=== PATIENT | female | born 1935 | race Caucasian/White ===

== ENCOUNTER 2017-05-28 08:35 | Outpatient (CLI) | payer MEDICARE, BC ==
[2017-05-28] MEDS ORDERED: Iopamidol 370 76% 100 ML VIAL ONE (09:00)
[2017-05-28 09:41] LABS: Anion Gap 13 mmol/L (10-20); BUN (Urea Nitrogen) 9 mg/dL (9.8-20.1); Calc. Creatinine Clearance 0 mL/min (70-130); Calcium 10.3 mg/dL (7.8-10.44); Carbon Dioxide 27 mmol/L (23-31); Chloride 106 mmol/L (98-107); Estimated GFR-MDRD 79
--- NOTE | 2017-05-28 10:31 | CT ---
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 TECHNIQUE: Multiple CT images were obtained of the abdomen and pelvis with and without IV contrast utilizing elba al mass protocol. Comparisons are made with a renal ultrasound dated 05/08/17. FINDINGS: The focal hyperechoic lesion seen within the posterior aspect of the left mid kidney on the prior ult rasound, measures up to 1.1 cm and does demonstrate some small internal regions of macroscopic fat. There is mild enhancement related to the lesion. Findings are most consistent with a small angiomyol ipoma of the left mid kidney. There are small subcentimeter cysts seen within both kidneys. No hydr onephrosis evident. No gross urothelial lesion is identified in the segmentally opacified ureters or visualized aspects of the bladder. Bilateral hip prosthesis increases beam-scattered artifact which slightly limits image detail of the pelvis. There is a moderate amount of retained stool within the colon. The cecum is anterior to the bladder and the appendix is seen within the left lower quadrant of the abdomen. This is likely rela bladimir to long mesenteric leave of the cecum. There is no evidence of malrotation. The gallbladder is surgically absent. No focal hepatic lesion is evident. The spleen, pancreas, and adrenal glands are normal-appearing. There are moderate calcifications noted involving the abdominopelvic vasculature. There is a 9 mm fi broid within the anterior aspect of the uterine body. No definite acute osseous abnormality is evident. There is healed fracture deformity involving the r ight pubic ramus and right obturator ring. IMPRESSION: 1. 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 2. Mildly prominent stool within the colon. 3. Uterine fibroid. 4. Other findings as above. POS: [facility]
== END 2017-05-28 08:36 | disposition home or self-care (01) ==
LOC: SCSCT 08:35
PROVIDERS: ATTEND Urology
DX: D17.71 Benign lipomatous neoplasm of kidney (principal); R35.0 Frequency of micturition; D25.9 Leiomyoma of uterus, unspecified
CPT/HCPCS: 74178; 80048

== ENCOUNTER 2018-06-02 13:09 | Outpatient (CLI) | payer MEDICARE, BC ==
--- NOTE | 2018-06-02 15:42 | ULT ---
BILATERAL RENAL SONOGRAM: Date: 06/02/18 HISTORY: Angiomyolipoma. COMPARISON: 04/28/17, as well as CT abdomen on 05/28/17 and 09/07/15. FINDINGS: The right kidney again demonstrates a normal sonographic appearance without evidence of renal mass, r enal calculus, or hydronephrosis. The right kidney measures 10.5 cm x 5.1 cm. The left kidney measures 10.7 cm x 5.7 cm. There is an echogenic mass again seen within the mid porti on of the left kidney which measures 1.2 cm in maximal dimension. This measured 1.8 cm in maximal dim ension on the most recent prior exam. This again likely represents an angiomyolipoma. No additional r enal mass, renal calculus, or hydronephrosis seen on the left. Urinary bladder is partially distended and has a normal sonographic appearance. IMPRESSION: 1. Stable echogenic mass left kidney, likely attributable to an angiomyolipoma. This mass is stable in size dating back to a prior study on 04/11/16. 2. No evidence of hydronephrosis. POS: [facility]
== END 2018-06-02 13:10 | disposition home or self-care (01) ==
LOC: SCSULT 13:09
PROVIDERS: ATTEND Urology
DX: D30.02 Benign neoplasm of left kidney (principal); N28.89 Other specified disorders of kidney and ureter
CPT/HCPCS: 76770

== ENCOUNTER 2019-07-13 14:02 | Outpatient (CLI) | payer MEDICARE, BC ==
--- NOTE | 2019-07-13 15:22 | ULT ---
BILATERAL RENAL ULTRASOUND: Date: 07/13/2019 COMPARISON: 06/02/2018. HISTORY: Re-evaluate left renal lesion. TECHNIQUE: Multiplanar Cabrera scale sonographic imaging of the kidneys and urinary bladder obtained. FINDINGS: Right kidney measures 10.4 x 5.0 x 5.6 cm. Cortical thickness is 1.6 cm. Left kidney measures 11.5 x 5.7 x 5.5 cm. Cortical thickness is 1.6 cm. There is an echogenic lesion within the left renal cortex measuring up to 1.1 cm suggesting a probabl e stable angiomyolipoma. No hydronephrosis noted on either side. The urinary bladder appears grossly unremarkable. 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 POS: [facility]
== END 2019-07-13 14:03 | disposition home or self-care (01) ==
LOC: SCSULT 14:02
PROVIDERS: ATTEND Urology
DX: D17.71 Benign lipomatous neoplasm of kidney (principal)
CPT/HCPCS: 76770